=== PATIENT | female | born 1980 | race African-American/Black ===

== ENCOUNTER 2020-03-15 15:33 | Emergency (ER) | payer MEDICARE, BC ==
[~2020-03-15] VITALS: Ht 167.6 cm; Wt 85.0 kg
[2020-03-15] MEDS ORDERED: KETOROLAC 30MG/ML VIAL IM ONE (18:00)
[2020-03-15 19:32] VITALS: BP 122/84
== END 2020-03-15 19:33 | disposition home or self-care (01) ==
LOC: ER 15:33
DX: S92.355A Nondisplaced fracture of fifth metatarsal bone, left foot, initial encounter for closed fracture (principal); W18.39XA Other fall on same level, initial encounter; Y93.89 Activity, other specified; Y92.89 Other specified places as the place of occurrence of the external cause; Y99.8 Other external cause status; Z98.890 Other specified postprocedural states
CPT/HCPCS: 29515; 73610; 73630; 81025; 96372; 99284; J1885

== ENCOUNTER 2023-02-11 17:45 | Emergency (ER) | payer MEDICARE, BC ==
[~2023-02-11] VITALS: Ht 167.6 cm; Wt 87.1 kg
[2023-02-11 17:57] VITALS: BP 170/87
[2023-02-11] MEDS ORDERED: TETRACAINE 0.5% OPHTH DROPS 4ML RIGHTEYE ONE (20:45)
[2023-02-11] MEDS ORDERED: FLUORESCEIN SODIUM 1MG/STRIP RIGHTEYE ONE (20:45)
[2023-02-11] MEDS ORDERED: POLY10DR RIGHTEYE (21:37)
[2023-02-11] MEDS ORDERED: DEXAMETHASONE 10 MG/ML VIAL PO NR (21:45)
[2023-02-11] MEDS ORDERED: DEXAMETHASONE 1 MG/ML ORAL SYR PO ONE (21:45)
== END 2023-02-11 21:57 | disposition home or self-care (01) ==
LOC: ER 17:45
DX: H10.9 Unspecified conjunctivitis (principal); Z98.890 Other specified postprocedural states
CPT/HCPCS: 99283; J1100; J8540